=== PATIENT | female | born 1960 | race Hispanic/Latino ===

== ENCOUNTER 2018-01-05 15:24 | Outpatient (CLI) | payer OTHER ==
--- NOTE | 2018-01-07 13:23 | MMO ---
BILATERAL MAMMOGRAMS: DATE: 01/05/18 HISTORY: Screening mammography. FINDINGS: Scattered fibroglandular densities. No dominant mass or suspicious calcifications. The study was evaluated with the assistance of computer-aided detection. IMPRESSION: BIRADS 1: Negative Suggest routine follow-up. POS: [facility]
== END 2018-01-05 15:25 | disposition home or self-care (01) ==
LOC: SCSMAMMO 15:24
PROVIDERS: ATTEND Family Medicine
DX: Z12.31 Encounter for screening mammogram for malignant neoplasm of breast (principal)
CPT/HCPCS: 77067